=== PATIENT | female | born 1980 | race Caucasian/White ===

== ENCOUNTER 2023-03-14 17:48 | Emergency (ER) | payer OTHER ==
[~2023-03-14] VITALS: Ht 167.6 cm; Wt 90.3 kg
--- NOTE | 2023-03-14 18:39 | NUR ---
[facility] STROKE CALLED
--- NOTE | 2023-03-14 18:42 | NUR ---
PT TO CT VIA [employer].
--- NOTE | 2023-03-14 18:46 | NUR ---
CALLED [facility] [phone] MD WILL BE IGLESIA CORTEZ.
[2023-03-14 18:49] LABS: BASOPHILS # (AUTO) 0.1 K/uL (0.0-0.2); BASOPHILS % (AUTO) 0.9 % (0.0-2.0); EOSINOPHILS % (AUTO) 3.9 % (0.0-6.0); HEMATOCRIT 42 % (33-45); HEMOGLOBIN 14.3 g/dL (11.5-14.8); LYMPHOCYTES # (AUTO) 2.4 K/uL (0.8-4.8); LYMPHOCYTES % (AUTO) 30.3 % (20.0-44.0); MEAN CORPUSCULAR HGB CONC 34 g/dl (31.0-36.0); MEAN CORPUSCULAR VOLUME 88 fL (82-100); MONOCYTES # (AUTO) 0.5 K/uL (0.1-1.30); MONOCYTES % (AUTO) 6.8 % (2.0-12.0); NEUTROPHILS # (AUTO) 4.6 K/uL (1.8-8.9); NEUTROPHILS % (AUTO) 58.1 % (43.0-81.0); PLATELET COUNT (AUTO) 204 K/uL (150-450); RED BLOOD CELL COUNT(AUTO) 4.75 MIL/uL (4.0-5.2)
[2023-03-14] MEDS ORDERED: IOHEXOL-350 100 ML VIAL IV ONE (18:49)
[2023-03-14] MEDS ORDERED: IV NS 0.9% 250 ML IV ONE (18:49)
[2023-03-14 18:57] LABS: CALCIUM, SERUM 9.3 mg/dL (8.5-10.1); CARBON DIOXIDE 27 mmol/L (21-32); CHLORIDE 104 mmol/L (98-107); CREATININE 0.7 mg/dL (0.6-1.3); GLUCOSE 99 mg/dL (74-106); POTASSIUM 3.7 mmol/L (3.5-5.1); SODIUM SERUM 141 mmol/L (136-145); UREA NITROGEN, BLOOD 8 mg/dL (7-18)
[2023-03-14 19:03] LABS: ALANINE AMINOTRANSFERASE 49 U/L (12-78); ALBUMIN 3.8 g/dL (3.4-5.0); ALKALINE PHOSPHATASE 84 U/L (46-116); ASPARTATE AMINOTRANSFERASE 19 U/L (15-37); BILIRUBIN,DIRECT 0.1 mg/dL (0.0-0.2); BILIRUBIN,TOTAL 0.3 mg/dL (0.2-1.0); TOTAL PROTEIN, SERUM 7.2 g/dL (6.4-8.2)
--- NOTE | 2023-03-14 20:03 | NUR ---
RECEIVED PT IN ER BED 9. PT IS ALERT AND ORIENTED. RR EVEN AND NON LABORED. ABLE TO MAKE NEEDS KNOWN. CONNECTED TO POX AND HEART MONITOR. VSS. FAMILY AT BEDSIDE.
[2023-03-14] MEDS ORDERED: KETOROLAC TROMETHAMINE 15 MG/ML VIAL ONE (20:47)
[2023-03-14] MEDS ORDERED: ACETAMINOPHEN ES 500 MG TABLET ONE (20:47)
[2023-03-14] MEDS ORDERED: METOCLOPRAMIDE HCL 10 MG/2 ML VIAL ONE (20:47)
[2023-03-14] MEDS ORDERED: METOCLOPRAMIDE HCL 10 MG/2 ML VIAL IV ONE (21:00)
[2023-03-14] MEDS ORDERED: KETOROLAC TROMETHAMINE INJ 30 MG/ML VIAL IV ONE (21:00)
[2023-03-14] MEDS ORDERED: ACETAMINOPHEN ES 500 MG TABLET PO ONE (21:00)
--- NOTE | 2023-03-14 21:13 | NUR ---
PT AMBULATED TO BATHROOM, STEADY GAIT NOTED
--- NOTE | 2023-03-14 21:38 | NUR ---
Patient discharged to home in stable condition. Written and verbal after care instructions given. Patient verbalizes understanding of instruction.
[2023-03-14 21:40] VITALS: BP 113/74
== END 2023-03-14 21:40 | disposition home or self-care (01) ==
LOC: ER 17:52
DX: R20.2 Paresthesia of skin (principal); R53.1 Weakness
CPT/HCPCS: 99291; 70498; 96374; 71045; 96375; 93005; 70496; 85025; 80048; 80076; 36415; 84484; 85730; 82962; 70450; J2765; J7050; Q9967; J1885